=== PATIENT | male | born 2000 | race Caucasian/White ===

== ENCOUNTER 2024-02-22 02:54 | Emergency (ER) | payer OTHER ==
[2024-02-22 03:14] VITALS: TEMP 98; BMI 22.6
[2024-02-22 03:48] LABS: BASO % 0.7 % (0-2.0); EOS % 0.9 % (0-4.5); HEMATOCRIT 50.6 % (35.4-49); HEMOGLOBIN 16.9 GM/dL (11.7-16.9); LYMPH % 33.3 % (8-40); MCH 28.7 pg (25.7-33.7); MCHC 33.4 g/dl (32.0-35.9); MEAN CELL VOLUME 85.8 fl (80-96); MEAN PLT VOLUME 9.9 fl (7.5-11.1); MONO % 5.1 % (3.8-10.2); PLATELET COUNT 269 10^3/uL (134-434); RDW 12.9 % (11.9-15.9); WHITE BLOOD COUNT 7.2 K/mm3 (4.0-10.0)
[2024-02-22 04:05] LABS: POTASSIUM 3.9 mmol/L (3.5-5.1)
[2024-02-22 04:07] LABS: CALCIUM 9.1 mg/dL (8.5-10.1)
[2024-02-22 04:11] LABS: CREATININE 0.8 mg/dL (0.55-1.3)
[2024-02-22 04:12] LABS: BILIRUBIN,TOTAL 0.4 mg/dL (0.2-1); TOT PROT 7.4 g/dl (6.4-8.2)
[2024-02-22 04:25] VITALS: BP 133/81; PULSE 90; RESP 16
== END 2024-02-22 04:42 | disposition home or self-care (01) ==
LOC: JER 02:54
DX: R55 Syncope and collapse (principal)
CPT/HCPCS: 36415; 80053; 84484; 85025; 93005; 93010; 99284-25